=== PATIENT | female | born 1980 | race Caucasian/White ===

== ENCOUNTER 2019-01-26 00:05 | Emergency (ER) | payer SELFPAY ==
[~2019-01-26] VITALS: Ht 154.9 cm; Wt 56.2 kg
[2019-01-26 00:20] VITALS: Ht 154.9 cm; Wt 56.2 kg
[2019-01-26 00:59] VITALS: BP 129/71
== END 2019-01-26 00:59 | disposition home or self-care (01) ==
LOC: ED 00:05
DX: T15.01XA Foreign body in cornea, right eye, initial encounter (principal); H10.89 Other conjunctivitis; X58.XXXA Exposure to other specified factors, initial encounter; Y93.89 Activity, other specified; Y92.89 Other specified places as the place of occurrence of the external cause; Y99.8 Other external cause status

== ENCOUNTER 2019-10-04 02:16 | Emergency (ER) | payer OTHER ==
[~2019-10-04] VITALS: Ht 154.9 cm; Wt 59.4 kg
[2019-10-04 02:22] VITALS: BP 148/97
== END 2019-10-04 03:10 | disposition home or self-care (01) ==
LOC: ED 02:16
DX: H10.9 Unspecified conjunctivitis (principal); F41.9 Anxiety disorder, unspecified; G43.909 Migraine, unspecified, not intractable, without status migrainosus; Z98.890 Other specified postprocedural states

== ENCOUNTER 2020-04-09 02:35 | Emergency (ER) | payer OTHER, SELFPAY ==
[~2020-04-09] VITALS: Ht 157.5 cm; Wt 59.0 kg
[2020-04-09 02:37] VITALS: Ht 157.5 cm; Wt 59.0 kg
[2020-04-09 05:26] VITALS: BP 132/92
== END 2020-04-09 05:43 | disposition home or self-care (01) ==
LOC: ED 02:35
DX: U07.1 COVID-19 (principal); J12.89 Other viral pneumonia; G43.909 Migraine, unspecified, not intractable, without status migrainosus; Z98.890 Other specified postprocedural states; Z90.89 Acquired absence of other organs
CPT/HCPCS: J0696; Q0092

== ENCOUNTER 2020-04-12 10:16 | Emergency (ER) | payer OTHER, SELFPAY ==
[~2020-04-12] VITALS: Ht 157.5 cm; Wt 59.0 kg
[2020-04-12 10:25] VITALS: Ht 157.5 cm; Wt 59.0 kg
[2020-04-12 13:06] VITALS: BP 112/75
== END 2020-04-12 13:06 | disposition home or self-care (01) ==
LOC: ED 10:16
DX: U07.1 COVID-19 (principal); J18.9 Pneumonia, unspecified organism; F17.210 Nicotine dependence, cigarettes, uncomplicated; G43.909 Migraine, unspecified, not intractable, without status migrainosus; Z71.6 Tobacco abuse counseling; Z98.890 Other specified postprocedural states
CPT/HCPCS: 99406; Q0092